=== PATIENT | male | born 1990 | race Caucasian/White ===

== ENCOUNTER 2018-10-31 21:33 | Emergency (ER) | payer BC ==
--- NOTE | 2018-10-31 21:39 | EDM.PDOC ---
ED HPI GENERAL MEDICAL PROBLEM - General Chief Complaint: ENT Problem Stated Complaint: SINUS INFECTION Time Seen by Provider: 10/31/18 21:37 Source of Information: Reports: Patient History Limitations: Reports: No Limitations - History of Present Illness INITIAL COMMENTS - FREE TEXT/NARRATIVE: HISTORY AND PHYSICAL: History of present illness: Patient is a 28-year-old male who has had sinus pressure and congestion 1 month. He states approximately 3 weeks ago he was treated with amoxicillin for an ear infection and felt like his symptoms were improving but over the past week and a half they have progressively gotten worse again. He denies any fever , chills, chest pain, shortness of breath or cough. Denies any abdominal pain, nausea, vomiting, diarrhea or constipation. He has been able to eat and drink appropriately. Review of systems: As per history of present illness and below otherwise all systems reviewed and negative. Past medical history: As per history of present illness and as reviewed below otherwise noncontributory. Surgical history: As per history of present illness and as reviewed below otherwise noncontributory. Social history: See social history for further information Family history: As per history of present illness and as reviewed below otherwise noncontributory. Physical exam: General: Well-developed and well-nourished 28-year-old male. Alert and oriented. Nontoxic appearing and in no acute distress. HEENT: Atraumatic, normocephalic, pupils equal and reactive bilaterally, negative for conjunctival pallor or scleral icterus, mucous membranes moist, maxillary sinus tenderness bilaterally with palpation, TMs normal bilaterally, throat clear, neck supple, nontender, trachea midline. No drooling or trismus noted. No meningeal signs. No hot potato voice noted. Lungs: Clear to auscultation, breath sounds equal bilaterally, chest nontender. Heart: S1S2, regular rate and rhythm without overt murmur Abdomen: Soft, nondistended, nontender. Negative for masses. Pelvis: Stable nontender. Genitourinary: Deferred. Rectal: Deferred. Skin: Intact, warm, dry. No lesions or rashes noted. Extremities: Atraumatic, negative for cords or calf pain. Neurovascular unremarkable. Neuro: Awake, alert, oriented. Cranial nerves II through XII unremarkable. Cerebellum unremarkable. Motor and sensory unremarkable throughout. Exam nonfocal. Notes: We'll treat with Augmentin. Supportive care measures were reviewed and discussed. Voices understanding and is agreeable to plan of care. Denies any further questions or concerns at this time. Diagnostics: None Therapeutics: None Prescription: Augmentin Impression: Sinusitis Plan: 1. Please take the medication as directed. 2. Tylenol and/or ibuprofen as needed for pain management. 3. Follow-up with your primary care provider as we discussed. Return to the ED as needed and as discussed. Definitive disposition and diagnosis as appropriate pending reevaluation and review of above. ED ROS ENT - Review of Systems Review Of Systems: ROS reveals no pertinent complaints other than HPI. ED EXAM, ENT - Physical Exam Exam: See Below (See dictation) Departure - Departure Time of Disposition: 21:48 Disposition: Home, Self-Care 01 Clinical Impression: Sinusitis Qualifiers: Sinusitis location: frontal Chronicity: unspecified Qualified Code(s): J32.1 - Chronic frontal sinusitis - Discharge Information Instructions: Sinusitis, Adult, [id number] Forms: ED Department Discharge Additional Instructions: The following information is given to patients seen in the emergency department who are being discharged to home. This information is to outline your options for follow-up care. We provide all patients seen in our emergency department with a follow-up referral. The need for follow-up, as well as the timing and circumstances, are variable depending upon the specifics of your emergency department visit. If you don't have a primary care physician on staff, we will provide you with a referral. We always advise you to contact your personal physician following an emergency department visit to inform them of the circumstance of the visit and for follow-up with them and/or the need for any referrals to a consulting specialist. The emergency department will also refer you to a specialist when appropriate. This referral assures that you have the opportunity for follow-up care with a specialist. All of these measure are taken in an effort to provide you with optimal care, which includes your follow-up. Under all circumstances we always encourage you to contact your private physician who remains a resource for coordinating your care. When calling for follow-up care, please make the office aware that this follow-up is from your recent emergency room visit. If for any reason you are refused follow-up, please contact the [facility] Emergency Department at and asked to speak to the emergency department charge nurse. [facility] [address] [place] [address] [facility] [address] [place] [id number] 1. Please take the medication as directed. 2. Tylenol and/or ibuprofen as needed for pain management. 3. Follow-up with your primary care provider as we discussed. Return to the ED as needed and as discussed.
== END 2018-10-31 22:00 | disposition home or self-care (01) ==
LOC: MW.ED 21:33
DX: J32.1 Chronic frontal sinusitis (principal)
CPT/HCPCS: 99282; 99283

== ENCOUNTER 2020-06-23 23:50 | Emergency (ER) | payer BC ==
[2020-06-24] MEDS ORDERED: Ketorolac 60 MG/2 ML SDV IM ONE (00:26)
[2020-06-24] MEDS ORDERED: Cyclobenzaprine 10 MG Tab PO ONE (00:27)
--- NOTE | 2020-06-24 00:56 | CR ---
INDICATION: Left lower rib pain TECHNIQUE: Chest radiograph, Rib radiographs 3 views left COMPARISON: None FINDINGS: Mediastinum: The mediastinum is normal in appearance. The heart silhouette is normal in size and morphology. Lung: Both lungs are unremarkable in appearance. No sign of pleural effusion seen. No pneumothorax is identified. Ribs and bones: There is a linear lucency over the left posterior 11th rib. The remaining osseous structures are unremarkable for age. Soft tissue: Unremarkable. Surgical clips are noted in the right upper quadrant from prior cholecystectomy. IMPRESSION: 1. There is a linear lucency over the left posterior 11th rib. In the setting of trauma, this is likely a nondisplaced fracture. Dictated by Chang Cervantes MD @ 06/24/2020 12:55:51 AM Dictated by: Chang Cervantes MD @ 06/24/2020 00:55:54 (Electronically Signed)
--- NOTE | 2020-06-24 01:51 | EDM.PDOC ---
ED HPI GENERAL MEDICAL PROBLEM - General Chief Complaint: General Stated Complaint: ABDOMINAL PAIN Time Seen by Provider: 06/24/20 00:22 - History of Present Illness INITIAL COMMENTS - FREE TEXT/NARRATIVE: HISTORY AND PHYSICAL: History of present illness: This is a 29-year-old gentleman with no significant past medical history who presents ER today secondary to acute onset of left lower rib pain which occurred while he was trying to crab picker a rifle at home. Patient reports while he was picking up a rifle he felt severe sharp pain to his left lower ribs. Patient denies any fevers, shakes, chills, nausea, vomiting, diarrhea, dysuria, frequency, urgency, shortness of breath, calf tenderness, hemoptysis, shortness of breath. Patient has any history of DVT or PE in the past. Patient present pain increases with movement of his torso or bending over to try to pick something up. Patient reports it feels like a spasm in his rib area. Patient denies any history of hypertension, diabetes, liver, lung, kidney problems. Patient reports that he is status post a cholecystectomy. Patient reports he does smoke occasionally. Patient has any alcohol or drugs. Patient has no known drug allergies. Review of systems: As per history of present illness and below otherwise all systems reviewed and negative. Past medical history: As per history of present illness and as reviewed below otherwise noncontributory. Surgical history: As per history of present illness and as reviewed below otherwise noncontributory. Social history: No reported history of drug or alcohol abuse. Family history: As per history of present illness and as reviewed below otherwise noncontributory. Physical exam: HEENT: Atraumatic, normocephalic, pupils reactive, negative for conjunctival pallor or scleral icterus, mucous membranes moist, throat clear, neck supple, nontender, trachea midline. Lungs: Clear to auscultation, breath sounds equal bilaterally, chest nontender. Heart: S1S2, regular, negative for clicks, rubs, or JVD. Abdomen: Soft, nondistended, nontender. Negative for masses or hepatosplenomegaly. Negative for costovertebral tenderness. Pelvis: Stable nontender. Genitourinary: Deferred. Rectal: Deferred. Extremities: Atraumatic, negative for cords or calf pain. Neurovascular unremarkable. Neuro: Awake, alert, oriented. Cranial nerves II through XII unremarkable. Cerebellum unremarkable. Motor and sensory unremarkable throughout. Exam nonfocal. Patient's ER physical exam is significant for reproducible tenderness palpation to his left lateral lower ribs at approximately rib number 10/11/12. Patient reports pain increases with movement of his torso as well as inspiration. Diagnostics: Chest x-ray/left rib x-ray reveals lucency and posterior left rib #11 consistent with possible fracture. Therapeutics: Patient given Toradol 60 IM as well as Flexeril 10 mg p.o. Patient reports that he does feel slightly improved after the medication. Assessment and plan: This is a 29-year-old gentleman who presents ER today secondary to acute onset of left rib pain which occurred while he was try to lift up a rifle. Patient reports he had severe pain in that area since. Patient ports that the pain is intermittent comes and spasmodic waves. Patient reports whenever he bends over to lift an object he reports that the pain increases. Patient reports pain increases with inspiration as well as palpation. Rib x-ray reveals possible lucency in room #11 consistent with possible fracture. Given patient's age and lack of significant trauma, CT scan of the thorax has been obtained to rule out possible pathological fracture of rib. CT scan does not reveal any fracture of the ribs. There is a nodule that is likely a granuloma. This was discussed with the patient I was instructed that he will need to follow-up with his doctor for repeat CT scan. Patient be discharged home with ibuprofen and Flexeril. Reassessment at the time of disposition demonstrates that the patient is in no acute distress. The patient has remained stable throughout the entire ED visit and is without objective evidence for acute process requiring urgent intervention or hospitalization. The patient is stable for discharge, counseling is provided as documented above, discussed symptomatic treatment and specific conditions for return. I have spoken with the patient/caregiver and discussed todays findings, in addition to providing specific details for the plan of care. Questions are answered and there is agreement with the plan. Definitive disposition and diagnosis as appropriate pending reevaluation and review of above. LUQ Pain Score (Numeric/FACES): 8 - Related Data Allergies Allergy/AdvReac Type Severity Reaction Status Date / Time No Known Allergies Allergy Verified 06/23/20 23:59 Home Meds: Home Meds Cyclobenzaprine [Flexeril] 10 mg PO TID PRN #20 tab 06/24/20 [Rx] Ibuprofen 600 mg PO Q6HR PRN #30 tablet 06/24/20 [Rx] Past Medical History HEENT History: Reports: Sinusitis - Infectious Disease History Infectious Disease History: Reports: Chicken Pox Social & Family History - Family History Family Medical History: Noncontributory - Tobacco Use Tobacco Use Status *Q: Current Every Day Tobacco User Years of Tobacco use: 5 Packs/Tins Daily: 1 - Recreational Drug Use Recreational Drug Use: No ED ROS GENERAL - Review of Systems Review Of Systems: See Below ED EXAM, GENERAL - Physical Exam Exam: See Below Course - Vital Signs Last Recorded V/S: Last Vital Signs Temp 97.7 F 06/24/20 00:00 Pulse 74 06/24/20 00:00 Resp 18 06/24/20 00:00 BP 106/70 06/24/20 00:00 Pulse Ox 98 06/24/20 00:00 - Orders/Labs/Meds Meds: Medications Discontinued Medications Generic Name Dose Route Start Last Admin Trade Name Mayela PRN Reason Stop Dose Admin Cyclobenzaprine HCl 10 mg 06/24/20 00:27 06/24/20 00:33 Flexeril PO 06/24/20 00:28 10 mg ONETIME ONE Administration Ketorolac Tromethamine 60 mg 06/24/20 00:26 06/24/20 00:33 Toradol IM 06/24/20 00:27 60 mg ONETIME ONE Administration Departure - Departure Time of Disposition: 02:01 Disposition: Home, Self-Care 01 Clinical Impression: Rib pain on left side, Musculoskeletal pain - Discharge Information Instructions: Chest Wall Pain, [id number], Musculoskeletal Pain Referrals: PCP,None [Primary Care Provider] - Forms: ED Department Discharge Sepsis Event Note (ED) - Evaluation Sepsis Screening Result: No Definite Risk - Focused Exam Vital Signs: Vital Signs Temp Pulse Resp BP Pulse Ox 06/24/20 00:00 97.7 F 74 18 106/70 98
--- NOTE | 2020-06-24 01:57 | CT ---
INDICATION: Rib pain, abnormal chest radiograph TECHNIQUE: CT chest without contrast. COMPARISON: Chest radiograph from same day FINDINGS: Cardiovascular structures: Heart size is normal. Thoracic aorta and main pulmonary artery are normal in caliber. Mediastinum and jocelin: No sign of mass or adenopathy. Lungs: 7 mm pulmonary nodule in the left lower lobe image 87 series 202. This is likely a noncalcified granuloma. Pleura and pericardium: No effusions. Chest wall and axilla: No mass or adenopathy. Upper abdomen: Status post cholecystectomy. Bones: No significant findings. IMPRESSION: No acute intrathoracic abnormality. Status post cholecystectomy. Please note that all CT scans at this facility use dose modulation, iterative reconstruction, and/or weight-based dosing when appropriate to reduce radiation dose to as low as reasonably achievable. Dictated by Frances Castellanos MD @ Jun 24 2020 1:49AM Signed by Dr. Frances Castellanos @ Jun 24 2020 1:55AM
== END 2020-06-24 02:15 | disposition home or self-care (01) ==
LOC: MW.ED 23:50
DX: R07.81 Pleurodynia (principal); F17.210 Nicotine dependence, cigarettes, uncomplicated
CPT/HCPCS: 71101; 71250; 96372; 99284; A9270; J1885; 99283

== ENCOUNTER 2020-09-04 19:34 | Emergency (ER) | payer BC ==
--- NOTE | 2020-09-04 19:56 | EDM.PDOC ---
ED HPI GENERAL MEDICAL PROBLEM - General Chief Complaint: Lower Extremity Injury/Pain Stated Complaint: LEFT TOE INJURY Time Seen by Provider: 09/04/20 19:35 Source of Information: Reports: Patient History Limitations: Reports: No Limitations - History of Present Illness INITIAL COMMENTS - FREE TEXT/NARRATIVE: HISTORY AND PHYSICAL: History of present illness: Patient is a 30-year-old male who presents to the emergency room with complaints of left great toe pain. He states he was moving some furniture two nights ago when the furniture have landed on his great toe. He has bruising, soft tissue swelling, and increased pain with weightbearing. He denies any other extremity involvement. Offers no systemic complaints. Ambulatory into the emergency room with an even and steady gait. Review of systems: As per history of present illness and below otherwise all systems reviewed and negative. Past medical history: As per history of present illness and as reviewed below otherwise noncontributory. Surgical history: As per history of present illness and as reviewed below otherwise noncontributory. Social history: See social history for further information Family history: As per history of present illness and as reviewed below otherwise noncontributory. Physical exam: General: Well developed and well nourished. Alert and orientated x 3. Nontoxic in appearance and in no acute distress. Vital signs are stable and have been reviewed by me. Nursing notes were reviewed. HEENT: Atraumatic, normocephalic, pupils equal and reactive bilaterally, negative for conjunctival pallor or scleral icterus, mucous membranes moist, TMs normal bilaterally, throat clear, neck supple, nontender, trachea midline. No drooling or trismus noted. No meningeal signs. No hot potato voice noted. Lungs: Clear to auscultation, breath sounds equal bilaterally, chest nontender. Normal work of breathing, no accessory muscles used. Heart: S1S2, regular rate and rhythm without overt murmur Abdomen: Soft, nondistended, nontender. Negative for masses or hepatosplenomegaly. Negative for costovertebral tenderness. Pelvis: Stable nontender. Skin: Bruising and soft tissue swelling of the left great toe. Otherwise remaining skin is intact, warm, dry. No lesions or rashes noted. Hematologic: No petechiae or purpra. Mucosa appropriate color and normal nail bed color and refill. Extremities: Pain with palpation of the left great toe, bruising and soft tissue swelling is noted. Nailbed is intact. Moves all extremities per self without difficulty or deficits, negative for cords or calf pain. Neurovascular unremarkable. Neuro: Awake, alert, oriented. Cranial nerves II through XII unremarkable. Cerebellum unremarkable. Motor and sensory unremarkable throughout. Exam nonfocal. Psychiatric: Mood and affect are appropriate. Normal thought process. Answering questions appropriately. Notes: *This patient was seen and evaluated during the 2019 SARS-CoV-2 novel coronavirus pandemic period. Community viral transmission is ongoing at time of this encounter and the emergency department is operating under pandemic response procedures. X-ray shows corner fracture at the base of the distal phalanx of the great toe. Post operative shoe and crutches for a left great toe fracture to be nonweightbearing. To wear until follows up with podiatry. I have talked with the patient about today's findings, in addition to providing specific details for plan of care. Reassessment at the time of disposition demonstrates that the patient is in no acute distress. The patient is stable for discharge, counseling was provided and we discussed in great detail signs and symptoms that would prompt them to return to the Emergency Department. Medication, follow up and supportive care measures were reviewed and discussed. Voices understanding and is agreeable to plan of care. Denies any further questions or concerns at this time. Diagnostics: Great toe x-ray Therapeutics: Post operative shoe/crutches Prescription: [place] (#20) Impression: Toe fracture, left great toe Plan: 1. Rest, ice, elevate the extremity as able. Wear the post-operative shoe and use crutches to be nonweightbearing until you follow up with podiatry (Dr Schmid at [facility]) or the orthopedic provider at the [facility]. 2. You can alternate Tylenol and ibuprofen as needed for pain and fever management. [place] for moderate to sever pain, will cause drowsiness so do not take while driving or needing to be functioning outside the house. 3. If your symptoms should worsen, new symptoms develop or any of the signs and symptoms we discussed should arise please return to the emergency room or call 911 (if needed). Definitive disposition and diagnosis as appropriate pending reevaluation and review of above. Left Toe-Hailux Pain Score (Numeric/FACES): 6 - Related Data Allergies Allergy/AdvReac Type Severity Reaction Status Date / Time No Known Allergies Allergy Verified 09/04/20 19:41 Home Meds: Home Meds Cyclobenzaprine [Flexeril] 10 mg PO TID PRN #20 tab 06/24/20 [Rx] Ibuprofen 600 mg PO Q6HR PRN #30 tablet 06/24/20 [Rx] Past Medical History - Past Health History Medical/Surgical History: Denies Medical/Surgical History HEENT History: Reports: Sinusitis Cardiovascular History: Reports: None - Infectious Disease History Infectious Disease History: Reports: Chicken Pox Social & Family History - Family History Family Medical History: No Pertinent Family History - Tobacco Use Tobacco Use Status *Q: Light Tobacco User Years of Tobacco use: 10 Packs/Tins Daily: 0.1 - Caffeine Use Caffeine Use: Reports: Coffee - Recreational Drug Use Recreational Drug Use: No Review of Systems - Review of Systems Review Of Systems: Comprehensive ROS is negative, except as noted in HPI. ED EXAM, GENERAL - Physical Exam Exam: See Below (See dictation) Course - Vital Signs Last Recorded V/S: Last Vital Signs Temp 98 F 09/04/20 19:42 Pulse 83 09/04/20 19:42 Resp 16 09/04/20 19:42 BP 118/47 L 09/04/20 19:42 Pulse Ox 95 09/04/20 19:42 - Orders/Labs/Meds Orders: Active Orders 24 hr Category Date Time Status DME for Discharge [COMM] Stat Oth 09/04/20 20:17 Ordered Departure - Departure Time of Disposition: 20:22 Disposition: Home, Self-Care 01 Clinical Impression: Fractured great toe Qualifiers: Encounter type: initial encounter Fracture type: closed Phalanx: distal Fracture alignment: nondisplaced Laterality: left Qualified Code(s): S92.425A - Nondisplaced fracture of distal phalanx of left great toe, initial encounter for closed fracture - Discharge Information Instructions: Toe Fracture, [id number] Referrals: PCP,None [Primary Care Provider] - Forms: ED Department Discharge Additional Instructions: The following information is given to patients seen in the emergency department who are being discharged to home. This information is to outline your options for follow-up care. We provide all patients seen in our emergency department with a follow-up referral. The need for follow-up, as well as the timing and circumstances, are variable depending upon the specifics of your emergency department visit. If you don't have a primary care physician on staff, we will provide you with a referral. We always advise you to contact your personal physician following an emergency department visit to inform them of the circumstance of the visit and for follow-up with them and/or the need for any referrals to a consulting specialist. The emergency department will also refer you to a specialist when appropriate. This referral assures that you have the opportunity for follow-up care with a specialist. All of these measure are taken in an effort to provide you with optimal care, which includes your follow-up. Under all circumstances we always encourage you to contact your private physician who remains a resource for coordinating your care. When calling for follow-up care, please make the office aware that this follow-up is from your recent emergency room visit. If for any reason you are refused follow-up, please contact the [facility] Emergency Department at and asked to speak to the emergency department charge nurse. [facility] [address], [address] [place] [address] Podiatry: Dr Schmid [facility] Thank you for choosing the [facility] emergency department in [place] for your medical needs today. It was a pleasure caring for you. Today you were seen in the emergency department for toe fracture. 1. Rest, ice, elevate the extremity as able. Wear the post-operative shoe and use crutches to be nonweightbearing until you follow up with podiatry (Dr Schmid at [facility]) or the orthopedic provider at the [facility]. 2. You can alternate Tylenol and ibuprofen as needed for pain and fever management. [place] for moderate to sever pain, will cause drowsiness so do not take while driving or needing to be functioning outside the house. 3. If your symptoms should worsen, new symptoms develop or any of the signs and symptoms we discussed should arise please return to the emergency room or call 911 (if needed). Sepsis Event Note (ED) - Evaluation Sepsis Screening Result: No Definite Risk - Focused Exam Vital Signs: Vital Signs Temp Pulse Resp BP Pulse Ox 09/04/20 19:42 98 F 83 16 118/47 L 95 - My Orders Last 24 Hours: My Active Orders 09/04/20 20:17 DME for Discharge [COMM] Stat - Assessment/Plan Last 24 Hours: My Active Orders 09/04/20 20:17 DME for Discharge [COMM] Stat
--- NOTE | 2020-09-04 20:16 | CR ---
Indication: Crush injury Technique: Three views of the left great toe were required Comparison: None Findings: There is a corner fracture identified at the base of the distal phalanx of the great toe. This is located on the plantar and outer side of the base of the distal phalanx. Impression: Corner fracture at the base the distal phalanx of the great toe Dictated by Bharath Blevins MD @ Sep 04 2020 8:10PM Signed by Dr. Bharath Blevins @ Sep 04 2020 8:13PM
== END 2020-09-04 20:30 | disposition home or self-care (01) ==
LOC: MW.ED 19:34
DX: S92.425A Nondisplaced fracture of distal phalanx of left great toe, initial encounter for closed fracture (principal); Z72.0 Tobacco use; W20.8XXA Other cause of strike by thrown, projected or falling object, initial encounter
CPT/HCPCS: 73660-26-TA; 73660-TA; 99283